=== PATIENT | male | born 1940 | race Caucasian/White ===

== ENCOUNTER 2016-09-29 13:20 | Emergency (ER) | payer MEDICARE, BC ==
[2016-09-29 13:55] VITALS: BP 145/56
--- NOTE | 2016-09-29 14:48 | UC ---
Knee Pain HPI - HPI Summary HPI Summary: 76 year old male with complaints of right knee pain for 4 - 5 days that is increasing. He has noticed fluid and swelling. Denies injury. Able to bear weight - History of Current Complaint Chief Complaint: UCLowerExtremity Stated Complaint: RIGHT KNEE PAIN Time Seen by Provider: 09/29/16 14:36 Hx Obtained From: Patient Onset/Duration: Gradual Onset, Lasting Days - 4-5, Still Present Severity Initially: Mild Severity Currently: Moderate Pain Scale Used: 0-10 Numeric - 5 Character: Aching Aggravating Factor(s): Movement Alleviating Factor(s): Rest Associated Signs And Symptoms: Positive: Swelling Able to Bear Weight: Yes - Risk Factors Septic Arthritis Risk Factor: Negative Gout Risk Factor: Age ^ 41, DM - Allergies/Home Medications Allergies/Adverse Reactions: Allergies Allergy/AdvReac Type Severity Reaction Status Date / Time Ranolazine [From Ranexa] Allergy Rash Verified 01/31/15 13:19 Yellow Dye [From Ranexa] Allergy Rash Verified 01/31/15 13:19 Home Medications: Home Medications Finasteride TAB* [Proscar TAB*] 5 mg PO DAILY 09/29/16 [History Confirmed ] Pantoprazole TAB (NF) [Protonix TAB (NF)] 40 mg PO DAILY 09/29/16 [History Confirmed 09/29/16] PMH/Surg Hx/FS Hx/Imm Hx Previously Healthy: Yes Endocrine History Of: Reports: Diabetes Cardiovascular History Of: Reports: Cardiac Disorders - CT, TRIPLE BYPASS., Hypertension Respiratory History Of: Denies: Asthma - Surgical History Surgical History: Yes Surgery Procedure, Year, and Place: Triple Bypass, 2005, [facility]. Left Lower Leg Arterial Stents, 2012 2013, [facility]. Left second toe amputation, 2012, [facility]. COLECTOMY FOR ISCEMIC COLITIS - Family History Known Family History: Positive: Hypertension, Diabetes - father - Social History Occupation: Retired Lives: With Family - here with Alcohol Use: None Substance Use Type: None Smoking Status (MU): Former Smoker Type: Cigarettes Amount Used/How Often: 1/3 PPD Length of Time of Smoking/Using Tobacco: 10 Years Have You Smoked in the Last Year: No - Immunization History Most Recent Influenza Vaccination: fall 2015 Most Recent Tetanus Shot: PT NOT SURE Review of Systems Constitutional: Negative Skin: Negative Eyes: Negative ENT: Negative Respiratory: Negative Cardiovascular: Negative Gastrointestinal: Negative Genitourinary: Negative Motor: Negative Neurovascular: Negative Musculoskeletal: Arthralgia - right knee Neurological: Negative Psychological: Negative All Other Systems Reviewed And Are Negative: Yes Physical Exam Triage Information Reviewed: Yes Appearance: Well-Nourished, Ill-Appearing, Pain Distress - mild limping on right leg Vital Signs: Initial Vital Signs Temp 98.0 F 09/29/16 13:50 Pulse 64 09/29/16 13:50 Resp 18 09/29/16 13:50 BP 145/56 09/29/16 13:50 Pulse Ox 99 09/29/16 13:50 Vital Signs Reviewed: Yes Eyes: Positive: Conjunctiva Clear. Negative: Discharge ENT: Positive: Hearing grossly normal, Pharynx normal. Negative: Nasal congestion, Nasal drainage Neck: Positive: Supple, Nontender Respiratory: Positive: Lungs clear, Normal breath sounds Cardiovascular: Positive: RRR, Pulses Normal Musculoskeletal: Positive: Strength Intact - able to bear full weight but causes pain in right knee. walking with a limp, ROM Intact - pain in right knee with full extension of leg. No warmth, erythema or swelling noted. Mildly tender with palpation over anterior right knee Neurological: Positive: Alert, Muscle Tone Normal Psychological: Positive: Normal Response To Family - here with , Age Appropriate Behavior - pleasant and cooperative Skin: Positive: rashes, breakdown Knee Pain Course/Dx - Course Course Of Treatment: xray of right knee - osteoarthritis - Differential Dx/Diagnosis Differential Diagnosis/HQI/PQRI: Gout, Tendonitis, Other - arthritis Provider Diagnoses: right knee osteoarthritis Discharge - Discharge Plan Condition: Stable Disposition: HOME Patient Education Materials: Osteoarthritis (ED) Referrals: Bong Marinelli MD [Primary Care Provider] - 1 Week Additional Instructions: Ice pack to the painful area may offer some relief You may take tylenol 650 - 1000mg every 6 - 8 hours as needed for pain
--- NOTE | 2016-09-29 15:02 | RAD ---
Indication: 2 weeks anterior RIGHT knee pain and swelling without proceeding injury. Comparison: None. Technique: AP, tunnel, lateral, sunrise views RIGHT knee. Report: Normal alignment. Mild osteophytosis. Moderate joint space narrowing at the lateral facet of the patellofemoral joint. Negative for joint effusion, fracture, or focal osseous lesion. Stent at the level of the distal femoral and proximal suprageniculate popliteal artery. Popliteal fossa level surgical clips. Unremarkable soft tissue contours. IMPRESSION: Osteoarthritis most prominent at the patellofemoral joint with moderate joint space narrowing.
== END 2016-09-29 15:42 | disposition home or self-care (01) ==
LOC: UCCORT 13:20
DX: M17.11 Unilateral primary osteoarthritis, right knee (principal); R09.81 Nasal congestion; E11.9 Type 2 diabetes mellitus without complications; K55.8 Other vascular disorders of intestine; R21 Rash and other nonspecific skin eruption; I25.2 Old myocardial infarction; I25.10 Atherosclerotic heart disease of native coronary artery without angina pectoris; Z95.1 Presence of aortocoronary bypass graft; Z87.891 Personal history of nicotine dependence; Z91.02 Food additives allergy status; Z88.8 Allergy status to other drugs, medicaments and biological substances
CPT/HCPCS: 99212; G0463

== ENCOUNTER 2018-12-31 15:21 | Emergency (ER) | payer MEDICARE, BC ==
[2018-12-31 15:34] VITALS: BP 125/66
--- NOTE | 2018-12-31 15:57 | UC ---
Respiratory Complaint HPI - HPI Summary HPI Summary: 78 yo diabetic with 3 days history of sinus congestion, cough without production or shortness of breath or chest pain. No fever. Comes [place] [facility] [place]. No history of bronchitis or respiratory disease. - History of Current Complaint Chief Complaint: UCRespiratory Stated Complaint: CONGESTION Time Seen by Provider: 12/31/18 15:41 Hx Obtained From: Patient Onset/Duration: Gradual Onset, Lasting Days - 3-4 Timing: Intermittent Episodes Severity Initially: Mild Severity Currently: Moderate Pain Intensity: 0 Character: Cough: Nonproductive Aggravating Factors: Recumbent Position Alleviating Factors: Upright Position Associated Signs And Symptoms: Positive: Nasal Congestion, Sinus Discomfort. Negative: Dyspnea, Fever, Dizziness - Risk Factors Pulmonary Embolism Risk Factors: Negative Cardiac Risk Factors: Diabetes Pseudomonas Risk Factors: Negative Tuberculosis Risk Factors: Negative - Allergies/Home Medications Allergies/Adverse Reactions: Allergies Allergy/AdvReac Type Severity Reaction Status Date / Time renexa Allergy Rash Uncoded 12/31/18 15:35 Home Medications: Home Medications Irbesartan 75 mg PO DAILY 12/31/18 [History Confirmed 12/31/18] Sitagliptin Phosphate [Januvia] 100 mg PO DAILY 12/31/18 [History Confirmed ] PMH/Surg Hx/FS Hx/Imm Hx Previously Healthy: No - Diabetic neuropathy. Endocrine History: Diabetes Cardiovascular History: Cardiac Disease, Hypertension, Other - peripheral vascular disease with stenting. GI/ History: Other - Surgical History Surgical History: Yes Surgery Procedure, Year, and Place: Triple Bypass, 2005, [facility]. Left Lower Leg Arterial Stents, 2012 2013, [facility]. Left second toe amputation, 2012, [facility]. COLECTOMY FOR ISCEMIC COLITIS - Family History Known Family History: Positive: Hypertension, Diabetes - father - Social History Occupation: Retired Lives: With Family Alcohol Use: None Substance Use Type: None Smoking Status (MU): Former Smoker Type: Cigarettes Amount Used/How Often: 1/3 PPD Length of Time of Smoking/Using Tobacco: 10 Years Have You Smoked in the Last Year: No When Did the Patient Quit Smoking/Using Tobacco: 1994 - Immunization History Most Recent Influenza Vaccination: fall 2015 Most Recent Tetanus Shot: PT NOT SURE Review of Systems All Other Systems Reviewed And Are Negative: Yes Constitutional: Positive: Fatigue. Negative: Fever Skin: Positive: Negative Eyes: Positive: Negative ENT: Positive: Sore Throat, Nasal Discharge, Sinus Congestion Respiratory: Positive: Cough. Negative: Shortness Of Breath Cardiovascular: Negative: Palpitations, Chest Pain Gastrointestinal: Positive: Negative Genitourinary: Positive: Negative Motor: Positive: Negative Neurovascular: Positive: Negative Musculoskeletal: Positive: Negative Neurological: Positive: Negative. Negative: Headache Psychological: Positive: Negative Physical Exam Appearance: Well-Nourished, Ill-Appearing - looks mildly unwell, no respiratory distress with stable vitals Vital Signs: Initial Vital Signs Temp 98.8 F 12/31/18 15:30 Pulse 52 12/31/18 15:30 Resp 16 12/31/18 15:30 BP 125/66 12/31/18 15:30 Pulse Ox 98 12/31/18 15:30 Eyes: Positive: Conjunctiva Clear ENT Exam: Other - TM's obscured by wax. ENT: Positive: Pharyngeal erythema Dental Exam: Normal Neck: Positive: Supple, Nontender, No Lymphadenopathy Respiratory: Positive: Lungs clear, Normal breath sounds, No respiratory distress Cardiovascular: Positive: RRR, Murmur:Sys:Grade _?_/ - 2/6, no radiation. Neurological Exam: Normal Neurological: Positive: Alert Psychological Exam: Normal Respiratory Course/Dx - Course Course Of Treatment: amoxicillin and tessalon perles for treatment, rest and increased fluids. - Differential Dx/Diagnosis Differential Diagnosis/HQI/PQRI: Bronchitis, Lower Resp Infection, Sinusitis Provider Diagnosis: Acute sinusitis Discharge - Sign-Out/Discharge Documenting (check all that apply): Patient Departure All imaging exams completed and their final reports reviewed: No Studies - Discharge Plan Condition: Good Disposition: HOME Prescriptions: Amoxicillin PO (*) [Amoxicillin 875 MG (*)] 875 mg PO BID #14 tab Benzonatate CAP* [Tessalon 100 MG CAP*] 100 mg PO TID PRN #30 cap PRN Reason: Cough Patient Education Materials: Sinusitis (ED) Referrals: Bong Marinelli MD [Primary Care Provider] - Additional Instructions: Ensure increase in rest and fluids. Take amoxicillin for treatment of sinus infection, with as needed use of tessalon perles to suppress your cough. Follow up if you develop fever or shortness of breath. - Billing Disposition and Condition Condition: GOOD Disposition: Home
== END 2018-12-31 16:16 | disposition home or self-care (01) ==
LOC: UCCORT 15:21
DX: J01.90 Acute sinusitis, unspecified (principal); E11.40 Type 2 diabetes mellitus with diabetic neuropathy, unspecified; I10 Essential (primary) hypertension; I73.9 Peripheral vascular disease, unspecified; Z79.84 Long term (current) use of oral hypoglycemic drugs; Z79.899 Other long term (current) drug therapy; Z88.8 Allergy status to other drugs, medicaments and biological substances; Z87.891 Personal history of nicotine dependence
CPT/HCPCS: 99212; G0463